=== PATIENT | female | born 2000 | race African-American/Black ===

== ENCOUNTER 2023-10-23 14:32 | Emergency (ER) | payer MEDICAID, SELFPAY ==
[2023-10-23] MEDS ORDERED: Erythromycin Base 0.5% Ophth Oint 3.5 gm Tube ONE (15:04)
== END 2023-10-23 15:10 | disposition home or self-care (01) ==
LOC: BURERS 14:32
DX: H01.005 Unspecified blepharitis left lower eyelid (principal)
CPT/HCPCS: 99283